=== PATIENT | male | born 1960 | race Caucasian/White ===

== ENCOUNTER 2020-01-03 06:18 | Emergency (ER) | payer OTHER ==
[~2020-01-03] VITALS: Ht 175.3 cm; Wt 94.5 kg
[2020-01-03 06:20] VITALS: BP 146/92
--- NOTE | 2020-01-03 06:37 | PHYS DOC ---
Adult General Chief Complaint Chief Complaint: FINGER INJURY [facility] Patient is a 59 year old male who presents with complaint of right fifth finger injury. Patient was at work and he got his finger wedged between tote and a piece of machinery. 7 3:00 in the morning. Since that time he has noticed a sli ght medial deviation in the finger with some numbness. There is minimal pain at the metacarpal region. No treatment prior to arrival. 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 He continued to work until just prior to arrival Review of Systems Review of Systems All other ROS is negative unless otherwise stated in HPI Allergies Allergies Allergies Coded Allergies Type Severity Reaction Last Updated Verified Penicillins Allergy Severe rash 01/03/20 Yes cephalexin Allergy Severe rash, lips swell up 01/03/20 Yes ciprofloxacin Allergy Severe rash, lips swell up 01/03/20 Yes tolmetin Allergy Intermediate rash 01/03/20 Yes Physical Exam Physical Exam See above Constitutional: Well developed, well nourished, no acute distress, non-toxic appearance. [] HENT: Normocephalic, atraumatic, bilateral external ears normal, oropharynx moist, no oral exudates, nose normal. [] Eyes: PERRLA, EOMI, conjunctiva normal, no discharge. [] Neck: Normal range of motion, no tenderness, supple, no stridor. [] Cardiovascular:Heart rate regular rhythm, no murmur [] Lungs & Thorax: Bilateral breath sounds clear to auscultation [] Abdomen: Bowel sounds normal, soft, no tenderness, no masses, no pulsatile masses. [] Skin: Warm, dry, no erythema, no rash. [] Back: No tenderness, no CVA tenderness. [] Extremities: Normal except for the patient's little finger which has mild to moderate medial deviation that appears to be more prominent at the proximal interphalangeal joint. She has normal range of motion otherwise and minimal tenderness to the metacarpal region. Neurologic: Alert and oriented X 3, normal motor function, some decreased sensation/numbness to the right little finger, no focal deficits noted. [] Psychologic: Affect normal, judgement normal, mood normal. [] Current Patient Data Vital Signs Vital Signs Date Time Temp Pulse Resp B/P (MAP) Pulse Ox O2 Delivery O2 Flow Rate FiO2 01/03/20 06:20 98.2 91 16 146/92 (110) 99 Room Air 98.2 EKG EKG [] Radiology/Procedures Radiology/Procedures PROCEDURE: FINGER(S) RIGHT Three-view of the right small finger dated 01/03/2020. No comparison available. CLINICAL INDICATION: Pain after injury. Findings Compare 3 views of the right small finger show normal bony alignment. No displaced fracture. Diffuse soft tissue swelling. No acute osseous or articular abnormality. No bony avulsion. IMPRESSION: Soft tissue swelling with no evidence of underlying acute bony abnormality.[] Course & Med Decision Making Course & Med Decision Making Pertinent Labs and Imaging studies reviewed. (See chart for details) 0716: This patient's x-ray is negative for fracture or dislocation. Upon further examination he does have some swelling to the proximal interphalangeal joint mostly on the lateral aspect posteriorly. This is the joint that is limited to flexion the most. I suspect possible tendon injury. We will discuss further treatment options with orthopedics. 0737: I spoke with Dr. Dumont who recommends putting the patient in the safe position. We will give him information to a hand specialist and the patient is to follow-up with his Workmen's Compensation physician on Sunday and may be referred to the specialist provided today or a specialist of their choosing. We'll also start him on anti-inflammatory medication. Dragon Disclaimer Dragon Disclaimer This electronic medical record was generated, in whole or in part, using a voice recognition dictation system. Departure Departure Impression: Primary Impression: Injury of right little finger Disposition: HOME, SELF-CARE Condition: STABLE Patient Instructions: Cast or Splint Care Additional Instructions: You should follow-up with your Workmen's Comp physician on Sunday. You can consider referral to Dr. Dayami Fierro, a hand specialist. Scripts Diclofenac Sodium (DICLOFENAC SODIUM) 75 Mg Tablet. 1 TAB PO BID for 10 Days, #20 TAB 1 Refill Prov: ILANA MARTIN DO 01/03/20 ILANA MARTIN DO Jan 03, 2020 06:37
--- NOTE | 2020-01-03 06:57 | RAD ---
Three-view of the right small finger dated 01/03/2020. No comparison available. CLINICAL INDICATION: Pain after injury. Findings Compare 3 views of the right small finger show normal bony alignment. No displaced fracture. Diffuse soft tissue swelling. No acute osseous or articular abnormality. No bony avulsion. IMPRESSION: Soft tissue swelling with no evidence of underlying acute bony abnormality. Electronically signed by: Case Payan MD (01/03/2020 6:54 AM) [id number]
[2020-01-03] MEDS ORDERED: DICL75TA PO (07:42)
== END 2020-01-03 08:15 | disposition home or self-care (01) ==
LOC: ER 06:18
DX: S69.91XA Unspecified injury of right wrist, hand and finger(s), initial encounter (principal); Z88.0 Allergy status to penicillin; Z88.1 Allergy status to other antibiotic agents; W31.89XA Contact with other specified machinery, initial encounter; Y93.89 Activity, other specified; Y92.69 Other specified industrial and construction area as the place of occurrence of the external cause; Y99.0 Civilian activity done for income or pay
CPT/HCPCS: 29130; 73140; 99283

== ENCOUNTER 2021-07-23 21:10 | Observation (INO) | payer OTHER ==
[~2021-07-23] VITALS: Ht 175.3 cm; Wt 101.8 kg
[~2021-07-23 21:10] MED LIST: DICL75TA PO
--- NOTE | 2021-07-23 21:26 | PHYS DOC ---
Past Medical History Past Medical History: High Cholesterol, Hypertension Past Surgical History: Other Additional Past Surgical Histo: multiple knee and back surgeries Smoking Status: Never Smoker Alcohol Use: Sober General Adult HPI: HPI: Patient is a 60 year old male past medical history hypertension hyperlipidemia and chronic chest pain presents with a chief complaint of chest pain. Patient states he has chest pain daily usually lasting for a few minutes then it resolves with rest. Patient describes his typical chest pain in the left chest associated with some lightheadedness and some dizziness that usually last 10 to 15 minutes then resolved. Around 20 0 0 hours patient had a typical episode of chest pain but the pain was more intense. Associated symptoms included dizziness diaphoresis. Patient states he became concerned when the pain did not resolve. Patient states he had to take a knee. He describes the discomfort as a hard ache stabbing sensation that radiated to his back shoulder and left upper jaw. Patient states tonight symptoms reminded him of his previous heart attack. Patient rated the pain a 5 out of 10. EMS treated patient with aspirin and nitroglycerin. On arrival patient states his pain is currently a 2 out of 10. EKG performed showed no acute ischemic changes--with a sinus bradycardia. Review of Systems: Review of Systems: Review of systems: Constitutional symptoms- No fever, no chills. Eyes- No Discharge, No Visual Loss Respiratory symptoms- No shortness of breath, No wheezing, No Dyspnea on Exertion Cardiovascular Systems; Positive chest pain, No Palpitations, No syncope Gastrointestinal symptoms: NO abdominal pain, no nausea, no vomiting or diarrhea. Genitourinary symptoms: No dysuria. Musculoskeletal symptoms: No back pain No extremity pain. NEUROLOGICAL Symptoms: No headache, no generalized weakness; No focal Weakness positive dizziness Skin: No rash. Positive diaphoresis Heart Score: C/O Chest Pain: Yes HEART Score for Chest Pain: HEART Score for Chest Pain Response (Comments) Value History Moderately Suspicious 1 ECG Nonspecific Repolarizatio 1 Age >45 - < 65 1 Risk Factors 1 or 2 Risk Factors 1 Troponin < Normal Limit 0 Total 4 Risk Factors: Risk Factors: DM, Current or recent (<one month) smoker, HTN, HLP, family history of CAD, obesity. Risk Scores: Score 0 - 3: 2.5% MACE over next 6 weeks - Discharge Home Score 4 - 6: 20.3% MACE over next 6 weeks - Admit for Clinical Observation Score 7 - 10: 72.7% MACE over next 6 weeks - Early Invasive Strategies Allergies: Allergies: Allergies Coded Allergies Type Severity Reaction Last Updated Verified Penicillins Allergy Severe rash 01/03/20 Yes cephalexin Allergy Severe rash, lips swell up 01/03/20 Yes ciprofloxacin Allergy Severe rash, lips swell up 01/03/20 Yes tolmetin Allergy Intermediate rash 01/03/20 Yes Physical Exam: PE: Constitutional: Well developed, well nourished, no acute distress, non-toxic appearance. [] HENT: Normocephalic, atraumatic, bilateral external ears normal, oropharynx moist, no oral exudates, nose normal. [] Eyes: PERRLA, EOMI, conjunctiva normal, no discharge. [] Neck: Normal range of motion, no tenderness, supple, no stridor. [] Cardiovascular:Heart rate regular rhythm, no murmur [] Lungs & Thorax: Bilateral breath sounds clear to auscultation [] Abdomen: Bowel sounds normal, soft, no tenderness, no masses, no pulsatile masses. [] Skin: Warm, dry, no erythema, no rash. [] Back: No tenderness, no CVA tenderness. [] Extremities: No tenderness, no cyanosis, no clubbing, ROM intact, no edema. [] Neurologic: Alert and oriented X 3, normal motor function, normal sensory function, no focal deficits noted. [] Psychologic: Affect normal, judgement normal, mood normal. [] EKG: EKG: [] Performed at 2117 Rate [address] elevation No ST depression No acute CA Radiology/Procedures: Radiology/Procedures: [] Impression: Wet read chest x-ray no focal infiltrate no bony abnormality no acute process Course & Med Decision Making: Course & Med Decision Making Pertinent Labs and Imaging studies reviewed. (See chart for details) [] Patient was evaluated for chief complaint. Work-up consisted of laboratory analysis and radiologic imaging. Results reviewed and discussed with patient. EMS treated patient prehospital with aspirin and nitroglycerin. In the emergency department patient received morphine for his pain with improvement. Patient was admitted to the hospitalist with a cardiology consult. Josefina Disclaimer: Josefina Disclaimer: This electronic medical record was generated, in whole or in part, using a voice recognition dictation system. Departure Departure Impression: Primary Impression: Chest pain Disposition: ADMITTED INPATIENT Condition: STABLE Referrals: UNKNOWN PCP NAME (PCP) MECHELLE SAENZ DO Jul 23, 2021 21:26
[2021-07-23 21:37] LABS: BASO # 0.1 x10^3/uL (0.0-0.2); BASO % 1 % (0-3); EOS # 0.2 x10^3/uL (0.0-0.7); EOS % 4 % (0-3); HEMATOCRIT 40.5 % (39.0-53.0); HEMOGLOBIN 14.3 g/dL (13.0-17.5); LYMPH # 1.5 x10^3/uL (1.0-4.8); LYMPH % 22 % (24-48); MEAN CORPUSCULAR HEMOGLOBIN 30 pg (25-35); MEAN CORPUSCULAR HGB CONC 36 g/dL (31-37); MEAN CORPUSCULAR VOLUME 83 fL (79-100); MONO # 0.7 x10^3/uL (0.0-1.1); MONO % 10 % (0-9); NEUT # 4.2 x10^3/uL (1.8-7.7); NEUT % 64 % (31-73); PLATELET COUNT 250 x10^3/uL (140-400); RED BLOOD COUNT 4.87 x10^6/uL (4.30-5.70); RED CELL DISTRIBUTION WIDTH 13.1 % (11.5-14.5); WHITE BLOOD COUNT 6.7 x10^3/uL (4.0-11.0)
[2021-07-23 21:54] LABS: ALBUMIN 3.7 g/dL (3.4-5.0); ALBUMIN/GLOBULIN RATIO 1.2 (1.0-1.7); CALCIUM 9.4 mg/dL (8.5-10.1); CREATININE 1.1 mg/dL (0.7-1.3); GFR 68.8; TOTAL BILIRUBIN 0.6 mg/dL (0.2-1.0); TOTAL PROTEIN 6.8 g/dL (6.4-8.2)
[2021-07-23 21:57] LABS: POTASSIUM 2.9 mmol/L (3.5-5.1)
[2021-07-23] MEDS ORDERED: MORPHINE SULFATE 4 MG/ML INJ. IVP ONE (22:15)
[2021-07-23] MEDS ORDERED: MORPHINE SULFATE 2 MG/ML INJ. IVP PRN (23:30)
[2021-07-23] MEDS ORDERED: ONDANSETRON PF 4 MG/2 ML VIAL. IVP PRN (23:30)
[2021-07-23] MEDS ORDERED: NITROGLYCERIN SUBLINGUAL 0.4 MG BOTTLE OF 25. SL PRN (23:30)
[2021-07-24 00:10] VITALS: BP 139/84
[2021-07-24] MEDS ORDERED: POTASSIUM CHLORIDE 20 MEQ TABLET.ER. PO ONE (00:15)
--- NOTE | 2021-07-24 00:29 | RAD ---
Study: XR CHEST 1V Indication: Chest pain. Comparison: None. Findings: The cardiomediastinal silhouette and marcos are within normal limits. No localized airspace opacity, pl eural effusion or pneumothorax. Status post distal clavicular resection on the right. Impression: No acute radiographic abnormality of the chest. Electronically signed by: ISABELLA GUERIN MD (07/24/2021 12:27 AM) [facility] [place] [place]
[2021-07-24 03:00] VITALS: BP 162/81
[2021-07-24] MEDS ORDERED: ASPI81TA59 PO (03:37)
[2021-07-24] MEDS ORDERED: CRESTOR5 MG PO (03:37)
[2021-07-24] MEDS ORDERED: FURO40TA4 PO (03:37)
[2021-07-24] MEDS ORDERED: LABE200T4 PO (03:37)
[2021-07-24] MEDS ORDERED: POTA-116 PO (03:37)
[2021-07-24] MEDS ORDERED: CHLO25TA10 PO (03:37)
--- NOTE | 2021-07-24 04:36 | EKG ---
[facility] [address] [place] [address] Test Date: 2021-07-23 Test Time: 21:17:33 Pat Name: IOANA WORTHY Department: Room: [facility] Gender: M [employer]: : 1960 Requested By: MECHELLE SAENZ Order Number: [id number] Reading MD: Roberth Gregory MD Measurements Intervals [place]ron Rate: 54 P: -28 UT: 152 QRS: 11 QRSD: 84 T: 66 QT: 450 QTc: 429 Interpretive Statements SR Electronically Signed On 07-24-2021 11:27:24 CDT by Roberth Gregory MD
[2021-07-24 07:00] VITALS: BP 119/71
[2021-07-24 11:00] VITALS: BP 97/51
--- NOTE | 2021-07-24 11:54 | PDOC1 ---
History and Physical Date of Admission Date of Admission DATE: 07/24/21 TIME: 11:53 Identification/Chief Complaint Chief Complaint chest pain at rest History of Present Illness History of Present Illness 60 year old male past medical history hypertension hyperlipidemia and chronic chest pain presented to ER last night with a chief complaint of chest pain. he has chest pain daily usually lasting for a few minutes then it resolves with rest. Patient describes his typical chest pain / patient had a typical episode of chest pain but the pain was more intense. some dizziness diaphoresis. describes the discomfort as a hard ache stabbing sensation that radiated to his back shoulder and left upper jaw. last night , symptoms reminded him of his previous heart attack. Patient rated the pain a 5 out of 10. 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, had a cath this year in [facility] that was noncritical for stenosis Past Medical History Past Medical History Past Medical History Past Medical History Past Medical History: High Cholesterol, Hypertension Past Surgical History: Other Additional Past Surgical Histo: multiple knee and back surgeries Smoking Status: Never Smoker Alcohol Use: Sober fhx obesity Hepatobiliary: No pertinent hx Psych: Anxiety Musculoskeletal: Osteoarthritis Infectious disease: No pertinent hx ENT: No pertinent hx Renal/: No pertinent hx Dermatology: No pertinent hx Family History Family History: Heart Disease, High Cholestrol Social History Smoke: No ALCOHOL: none Drugs: None Current Problem List Problem List Problems Medical Problems: (1) Chest pain Status: Acute Current Medications Current Medications Current Medications Morphine Sulfate (Morphine Sulfate) 4 mg 1X ONCE IVP Last administered on 07/23/21at 22:38; Start 07/23/21 at 22:15; Stop 07/23/21 at 22:16; Status DC Ondansetron HCl (Zofran) 4 mg PRN Q8HRS PRN IVP NAUSEA/VOMITING; Start 07/23/21 at 23:30; Stop 07/24/21 at 23:29 Morphine Sulfate (Morphine Sulfate) 2 mg PRN Q2HR PRN IVP PAIN Last administered on 07/24/21at 02:08; Start 07/23/21 at 23:30; Stop 07/24/21 at 23:29 Nitroglycerin (Nitrostat) 0.4 mg PRN Q5MIN PRN SL CHEST PAIN; Start 07/23/21 at 23:30; Stop 07/24/21 at 23:29 Potassium Chloride (Klor-Con) 40 meq 1X ONCE PO Last administered on 07/24/21at 02:07; Start 07/24/21 at 00:15; Stop 07/24/21 at 00:17; Status DC Active Scripts Active Diclofenac Sodium 75 Mg Tablet.dr 1 Tab PO BID 10 Days Reported Children's Aspirin (Aspirin) 81 Mg Tab.chew 1 Tab PO DAILY 30 Days Chlorthalidone (Chlorthalidone) 25 Mg Tablet 25 Mg PO DAILY Crestor (Rosuvastatin Calcium) 5 Mg Tablet 2 Tab PO DAILY Klor-Con M10 (Potassium Chloride) 10 Meq Tab.er.prt 10 Meq PO DAILY Furosemide 40 Mg Tablet 1 Tab PO DAILY Labetalol Hcl 200 Mg Tablet 1 Tab PO BID Allergies Allergies: Coded Allergies: Penicillins (Verified Allergy, Severe, rash, 01/03/20) cephalexin (Verified Allergy, Severe, rash, lips swell up, 01/03/20) ciprofloxacin (Verified Allergy, Severe, rash, lips swell up, 01/03/20) tolmetin (Verified Allergy, Intermediate, rash, 01/03/20) ROS Review of System 14 PT ROS OTHERWISE NEG General: No: Chills, Night Sweats, Fatigue, Malaise, Appetite, Other PSYCHOLOGICAL ROS: No: Anxiety, Behavioral Disorder, Concentration difficultie, Decreased libido, Depression, Disorientation, Hallucinations, Hostility, Irritablity, Memory difficulties, Mood Swings, Obsessive thoughts, Physical abuse, Sexual abuse, Sleep disturbances, Suicidal ideation, Other Eyes: No Blurry vision, No Decreased vision, No Double vision, No Dry eyes, No Excessive tearing, No Eye Pain, No Itchy Eyes, No Loss of vision, No Photophobia, No Scotomata, No Uses contacts, No Uses glasses, No Other HEENT: No: Heacaches, Visual Changes, Hearing change, Nasal congestion, Nasal discharge, Oral lesions, Sinus pain, Sore Throat, Epistaxis, Sneezing, Snoring, Tinnitus, Vertigo, Vocal changes, Other ALLERGY AND IMMUNOLOGY: YES: Hives; No: Insect Bite Sensitivity, Itchy/Watery Eyes, Nasal Congestion, Post Nasal Drip, Seasonal Allergies, Other Hematological and Lymphatic: No: Bleeding Problems, Blood Clots, Blood Transfusions, Brusing, Night Sweats, Pallor, Swollen Lymph Nodes, Other ENDOCRINE: No: Breast Changes, Galactorrhea, Hair Pattern Changes, Hot Flashes, Malaise/lethargy, Mood Swings, Palpitations, Polydipsia/polyuria, Skin Changes, Temperature Intolerance, Unexpected Weight Changes, Other Breast: No New/Changing Breast Lumps, No Nipple changes, No Nipple discharge, No Other Respiratory: No: Cough, Hemoptysis, Orthopnea, Pleuritic Pain, Shortness of breath, SOB with excertion, Sputum Changes, Stridor, Tachypnea, Wheezing, Other Cardiovascular: yes Chest Pain; No Palpitations, No Orthopnea, No Paroxysmal Noc. Dyspnea, No Edema, No Lt Headedness, No Other Gastrointestinal: No Nausea, No Vomiting, No Abdominal Pain, No Diarrhea, No Constipation, No Melena, No Hematochezia, No Other Genitourinary: No Dysuria, No Frequency, No Incontinence, No Hematuria, No Retention, No Discharge, No Urgency, No Pain, No Flank Pain, No Other, No , No , No , No , No , No , No Musculoskeletal: No Gait Disturbance, No Joint Pain, No Joint Stiffness, No Joint Swelling, No Muscle Pain, No Muscular Weakness, No Pain In:, No Swelling In:, No Other Neurological: No Behavorial Changes, No Bowel/Bladder ControlChng, No Confusion, No Dizziness, No Gait Disturbance, No Headaches, No Impaired Coord/balance, No Memory Loss, No Numbness/Tingling, No Seizures, No Speech Problems, No Tremors, No Visual Changes, No Weakness, No Other Skin: No Dry Skin, No Eczema, No Hair Changes, No Lumps, No Mole Changes, No Mottling, No Nail Changes, No Pruritus, No Rash, No Skin Lesion Changes, No Other, No Acne Physical Exam Physical Exam Constitutional: Well developed, well nourished, no acute distress, [] HENT: Normocephalic, atraumatic, bilateral external ears normal, oropharynx moist, no oral exudates, nose normal. [] Eyes: PERRLA, EOMI, conjunctiva normal, no discharge. [] Neck: Normal range of motion, no tenderness, supple, no stridor. [] Cardiovascular:Heart rate regular rhythm, no murmur [] Lungs & Thorax: Bilateral breath sounds clear to auscultation [] Abdomen: Bowel sounds normal, soft, no tenderness, no masses, no pulsatile masses. [] Skin: Warm, dry, no erythema, no rash. [] Back: No tenderness, no CVA tenderness. [] Extremities: No tenderness, no cyanosis, no clubbing, ROM intact, no edema. [] Neurologic: Alert and oriented X 3, normal motor function, normal sensory function, no focal deficits noted. [] Psychologic: Affect normal, judgment normal, mood normal. [] General: Alert, Oriented X3, Cooperative, No acute distress HEENT: Atraumatic Lungs: Clear to auscultation Heart: S1S2, RRR, no thrills, no rubs Breasts: Not examined Abdomen: Normal bowel sounds, Soft, No tenderness, Other (obese) Rectal Exam: not examined Extremities: No cyanosis, No edema, No tenderness/swelling Skin: No significant lesion Neuro: Normal speech, Sensation intact, Cranial nerves 3-12 NL Psych/Mental Status: Mental status NL, Mood NL Vitals Vitals Vital Signs Date Time Temp Pulse Resp B/P (MAP) Pulse Ox O2 Delivery O2 Flow Rate FiO2 07/24/21 11:00 97.6 53 18 97/51 (66) 96 Room Air 97.6 07/24/21 07:00 2.0 Labs Labs Laboratory Tests Test 07/23/21 21:23 07/24/21 00:10 07/24/21 08:05 White Blood Count 6.7 x10^3/uL (4.0-11.0) Red Blood Count 4.87 x10^6/uL (4.30-5.70) Hemoglobin 14.3 g/dL (13.0-17.5) Hematocrit 40.5 % (39.0-53.0) Mean Corpuscular Volume 83 fL (79-100) Mean Corpuscular Hemoglobin 30 pg (25-35) Mean Corpuscular Hemoglobin Concent 36 g/dL (31-37) Red Cell Distribution Width 13.1 % (11.5-14.5) Platelet Count 250 x10^3/uL (140-400) Neutrophils (%) (Auto) 64 % (31-73) Lymphocytes (%) (Auto) 22 % (24-48) Monocytes (%) (Auto) 10 % (0-9) Eosinophils (%) (Auto) 4 % (0-3) Basophils (%) (Auto) 1 % (0-3) Neutrophils # (Auto) 4.2 x10^3/uL (1.8-7.7) Lymphocytes # (Auto) 1.5 x10^3/uL (1.0-4.8) Monocytes # (Auto) 0.7 x10^3/uL (0.0-1.1) Eosinophils # (Auto) 0.2 x10^3/uL (0.0-0.7) Basophils # (Auto) 0.1 x10^3/uL (0.0-0.2) Sodium Level 139 mmol/L (136-145) Potassium Level 2.9 mmol/L (3.5-5.1) Chloride Level 103 mmol/L (98-107) Carbon Dioxide Level 28 mmol/L (21-32) Anion Gap 8 (6-14) Blood Urea Nitrogen 25 mg/dL (8-26) Creatinine 1.1 mg/dL (0.7-1.3) Estimated GFR (Cockcroft-Gault) 68.8 BUN/Creatinine Ratio 23 (6-20) Glucose Level 96 mg/dL (70-99) Calcium Level 9.4 mg/dL (8.5-10.1) Total Bilirubin 0.6 mg/dL (0.2-1.0) Aspartate Amino Transf (AST/SGOT) 28 U/L (15-37) Alanine Aminotransferase (ALT/SGPT) 54 U/L (16-63) Alkaline Phosphatase 53 U/L (46-116) Troponin I Quantitative < 0.017 ng/mL (0.000-0.055) < 0.017 ng/mL (0.000-0.055) < 0.017 ng/mL (0.000-0.055) Total Protein 6.8 g/dL (6.4-8.2) Albumin 3.7 g/dL (3.4-5.0) Albumin/Globulin Ratio 1.2 (1.0-1.7) Laboratory Tests Test 07/23/21 21:23 07/24/21 00:10 07/24/21 08:05 White Blood Count 6.7 x10^3/uL (4.0-11.0) Red Blood Count 4.87 x10^6/uL (4.30-5.70) Hemoglobin 14.3 g/dL (13.0-17.5) Hematocrit 40.5 % (39.0-53.0) Mean Corpuscular Volume 83 fL (79-100) Mean Corpuscular Hemoglobin 30 pg (25-35) Mean Corpuscular Hemoglobin Concent 36 g/dL (31-37) Red Cell Distribution Width 13.1 % (11.5-14.5) Platelet Count 250 x10^3/uL (140-400) Neutrophils (%) (Auto) 64 % (31-73) Lymphocytes (%) (Auto) 22 % (24-48) Monocytes (%) (Auto) 10 % (0-9) Eosinophils (%) (Auto) 4 % (0-3) Basophils (%) (Auto) 1 % (0-3) Neutrophils # (Auto) 4.2 x10^3/uL (1.8-7.7) Lymphocytes # (Auto) 1.5 x10^3/uL (1.0-4.8) Monocytes # (Auto) 0.7 x10^3/uL (0.0-1.1) Eosinophils # (Auto) 0.2 x10^3/uL (0.0-0.7) Basophils # (Auto) 0.1 x10^3/uL (0.0-0.2) Sodium Level 139 mmol/L (136-145) Potassium Level 2.9 mmol/L (3.5-5.1) Chloride Level 103 mmol/L (98-107) Carbon Dioxide Level 28 mmol/L (21-32) Anion Gap 8 (6-14) Blood Urea Nitrogen 25 mg/dL (8-26) Creatinine 1.1 mg/dL (0.7-1.3) Estimated GFR (Cockcroft-Gault) 68.8 BUN/Creatinine Ratio 23 (6-20) Glucose Level 96 mg/dL (70-99) Calcium Level 9.4 mg/dL (8.5-10.1) Total Bilirubin 0.6 mg/dL (0.2-1.0) Aspartate Amino Transf (AST/SGOT) 28 U/L (15-37) Alanine Aminotransferase (ALT/SGPT) 54 U/L (16-63) Alkaline Phosphatase 53 U/L (46-116) Troponin I Quantitative < 0.017 ng/mL (0.000-0.055) < 0.017 ng/mL (0.000-0.055) < 0.017 ng/mL (0.000-0.055) Total Protein 6.8 g/dL (6.4-8.2) Albumin 3.7 g/dL (3.4-5.0) Albumin/Globulin Ratio 1.2 (1.0-1.7) Images Images PATIENT: IOANA WORTHY ACCOUNT: [id number] : 1960 LOCATION: [facility] AGE: 60 SEX: M EXAM STATUS: ADM IN ORD. PHYSICIAN: MECHELLE SAENZ DO REASON: chest pain PROCEDURE: CHEST AP ONLY Study: XR CHEST 1V Indication: Chest pain. Comparison: None. Findings: The cardiomediastinal silhouette and marcos are within normal limits. No localized airspace opacity, pleural effusion or pneumothorax. Status post distal clavicular resection on the right. Impression: No acute radiographic abnormality of the chest. Electronically signed by: ISABELLA GUERIN MD (07/24/2021 12:27 AM) [facility] DICTATED and SIGNED BY: ISABELLA GUERIN MD DATE: 07/24/21 [id number] VTE Prophylaxis Ordered VTE Prophylaxis Devices: No VTE Pharmacological Prophylaxi: Yes Assessment/Plan Assessment/Plan Impression: Chest pain Morbid obesity hx coronary artery spasm Hypertension Hyperlipidemia ADMITTED Cardiology consult ok with d[facility]c today[facility] Justifications for Admission Other Justification JAYJAY HERNANDEZ MD Jul 24, 2021 11:54
--- NOTE | 2021-07-24 13:10 | PDOC2 ---
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 He reports an extensive w/u here at [facility]. The patient is well educated about his disease state and reports that he was told about a mid myocardial bridge and was actually seen by a surgeon and they felt that he would be best treated with medical therapy. He normally has chest pain every day and is able to control it based on how active he is. He denies any current chest pain. Pain started yesterday at work at [employer]. It subsided after EMS gave him NTG. He has had normal EKG and trops. No syncope. PMHX: 1. Myocardial bridging and vasospasm 2. HTN 3. Dyslipidemia SOCHX: No alcohol, tob or illicit drug use. He works at [employer] now. FAMHX: NC CURRENT MEDS: Home meds reviewed - He is on metoprolol, amlodipine. ALLERGIES: Allergies Coded Allergies Type Severity Reaction Last Updated Verified Penicillins Allergy Severe rash 01/03/20 Yes cephalexin Allergy Severe rash, lips swell up 01/03/20 Yes ciprofloxacin Allergy Severe rash, lips swell up 01/03/20 Yes tolmetin Allergy Intermediate rash 01/03/20 Yes ROS: Negative for 08/18 systems reviewed unless noted above in HPI PHYSICAL EXAM: Vital Signs/I&O: Vital Signs Date Time Temp Pulse Resp B/P (MAP) Pulse Ox O2 Delivery O2 Flow Rate FiO2 07/24/21 11:00 97.6 53 18 97/51 (66) 96 Room Air 97.6 07/24/21 07:00 2.0 I & O 07/23/21 07/23/21 07/24/21 15:00 23:00 07:00 Output Total 400 ml Balance -400 ml Physical Exam: GEN.: No apparent distress. Alert and oriented. HEENT: Head is normocephalic, atraumatic NECK: Supple. LUNGS: Clear to auscultation. HEART: RRR, S1, S2 present. Peripheral pulses intact ABDOMEN: Soft, nontender. Positive bowel sounds. EXTREMITIES: Without any cyanosis. NEUROLOGIC: Normal speech, normal tone PSYCHIATRIC: Normal affect, normal mood. SKIN: No ulcerations DIAGNOSTIC TESTING: EKG and trops negative. Lab Laboratory Tests Test 07/23/21 21:23 White Blood Count 6.7 x10^3/uL (4.0-11.0) Red Blood Count 4.87 x10^6/uL (4.30-5.70) Hemoglobin 14.3 g/dL (13.0-17.5) Hematocrit 40.5 % (39.0-53.0) Mean Corpuscular Volume 83 fL (79-100) Mean Corpuscular Hemoglobin 30 pg (25-35) Mean Corpuscular Hemoglobin Concent 36 g/dL (31-37) Red Cell Distribution Width 13.1 % (11.5-14.5) Platelet Count 250 x10^3/uL (140-400) Neutrophils (%) (Auto) 64 % (31-73) Lymphocytes (%) (Auto) 22 % (24-48) L Monocytes (%) (Auto) 10 % (0-9) H Eosinophils (%) (Auto) 4 % (0-3) H Basophils (%) (Auto) 1 % (0-3) Neutrophils # (Auto) 4.2 x10^3/uL (1.8-7.7) Lymphocytes # (Auto) 1.5 x10^3/uL (1.0-4.8) Monocytes # (Auto) 0.7 x10^3/uL (0.0-1.1) Eosinophils # (Auto) 0.2 x10^3/uL (0.0-0.7) Basophils # (Auto) 0.1 x10^3/uL (0.0-0.2) Sodium Level 139 mmol/L (136-145) Potassium Level 2.9 mmol/L (3.5-5.1) *L Chloride Level 103 mmol/L (98-107) Carbon Dioxide Level 28 mmol/L (21-32) Anion Gap 8 (6-14) Blood Urea Nitrogen 25 mg/dL (8-26) Creatinine 1.1 mg/dL (0.7-1.3) Estimated GFR (Cockcroft-Gault) 68.8 BUN/Creatinine Ratio 23 (6-20) H Glucose Level 96 mg/dL (70-99) Calcium Level 9.4 mg/dL (8.5-10.1) Total Bilirubin 0.6 mg/dL (0.2-1.0) Aspartate Amino Transf (AST/SGOT) 28 U/L (15-37) Alkaline Phosphatase 53 U/L (46-116) Total Protein 6.8 g/dL (6.4-8.2) Albumin 3.7 g/dL (3.4-5.0) Albumin/Globulin Ratio 1.2 (1.0-1.7) Laboratory Tests 07/23/21 21:23 ASSESSMENT: 1. Stable angina. 2. HTN 3. Vasospastic angina PLAN: 1. No further CV testing needed. Pt. had a cath in Dec and seen by electronics technician apprentice and surgeon at [place] recently. -Supportive care. -Home on NTG prn. -f/u with new electronics technician apprentice at [facility] KAROLINA GAGNON MD Jul 24, 2021 13:10
[2021-07-24 15:00] VITALS: BP 147/88
--- NOTE | 2021-07-24 15:49 | PDOC3 ---
Discharge Summary Date of Admission: Jul 23, 2021 Date of Discharge: Jul 24, 2021 Follow-Up: 3-5 days Admitting Diagnosis comment: VTE Prophylaxis Ordered VTE Prophylaxis Devices: No VTE Pharmacological Prophylaxi: Yes DISCHARGE DX CONSULTS CARDIOLOGY COMPLICATIONS NONE D/C CONDITION GOOD D/C MEDS SEE [facility] Assessment/Plan Chest pain ATYPICAL, STABLE Morbid obesity hx coronary artery spasm Hypertension Hyperlipidemia ADMITTED Cardiology consult ok with d/c today, see cardiology in [facility] soon home meds d/w RN Justifications for Admission Justifications for Admission Other Justification Identification/Chief Complaint Chief Complaint chest pain at rest History of Present Illness History of Present Illness 60 year old male past medical history hypertension hyperlipidemia and chronic chest pain presented to ER last night with a chief complaint of chest pain. he has chest pain daily usually lasting for a few minutes then it resolves with rest. Patient describes his typical chest pain / patient had a typical episode of chest pain but the pain was more intense. some dizziness diaphoresis. describes the discomfort as a hard ache stabbing sensation that radiated to his back shoulder and left upper jaw. last night , symptoms reminded him of his previous heart attack. Patient rated the pain a 5 out of 10. He was working at [employer] last night when the pain became worse EMS treated patient with aspirin and nitroglycerin reportedly has hx vasospastic angina, had a cath this year in [facility] that was noncritical for stenosis Past Medical History Past Medical History Past Medical History Past Medical History Past Medical History: High Cholesterol, Hypertension Past Surgical History: Other Additional Past Surgical Histo: multiple knee and back surgeries Smoking Status: Never Smoker Alcohol Use: Sober fhx obesity Hepatobiliary: No pertinent hx Psych: Anxiety Musculoskeletal: Osteoarthritis Infectious disease: No pertinent hx ENT: No pertinent hx Renal/: No pertinent hx Dermatology: No pertinent hx Family History Family History: Heart Disease, High Cholestrol Social History Smoke: No ALCOHOL: none Drugs: None Current Problem List Problem List Problems Medical Problems: (1) Chest pain Status: Acute Current Medications Current Medications Current Medications Morphine Sulfate (Morphine Sulfate) 4 mg 1X ONCE IVP Last administered on 07/23/21at 22:38; Start 07/23/21 at 22:15; Stop 07/23/21 at 22:16; Status DC Ondansetron HCl (Zofran) 4 mg PRN Q8HRS PRN IVP NAUSEA/VOMITING; Start 07/23/21 at 23:30; Stop 07/24/21 at 23:29 Morphine Sulfate (Morphine Sulfate) 2 mg PRN Q2HR PRN IVP PAIN Last administered on 07/24/21at 02:08; Start 07/23/21 at 23:30; Stop 07/24/21 at 23:29 Nitroglycerin (Nitrostat) 0.4 mg PRN Q5MIN PRN SL CHEST PAIN; Start 07/23/21 at 23:30; Stop 07/24/21 at 23:29 Potassium Chloride (Klor-Con) 40 meq 1X ONCE PO Last administered on 07/24/21at 02:07; Start 07/24/21 at 00:15; Stop 07/24/21 at 00:17; Status DC Active Scripts Active Diclofenac Sodium 75 Mg Tablet.dr 1 Tab PO BID 10 Days Reported Children's Aspirin (Aspirin) 81 Mg Tab.chew 1 Tab PO DAILY 30 Days Chlorthalidone (Chlorthalidone) 25 Mg Tablet 25 Mg PO DAILY Crestor (Rosuvastatin Calcium) 5 Mg Tablet 2 Tab PO DAILY Klor-Con M10 (Potassium Chloride) 10 Meq Tab.er.prt 10 Meq PO DAILY Furosemide 40 Mg Tablet 1 Tab PO DAILY Labetalol Hcl 200 Mg Tablet 1 Tab PO BID Allergies Allergies: Coded Allergies: Penicillins (Verified Allergy, Severe, rash, 01/03/20) cephalexin (Verified Allergy, Severe, rash, lips swell up, 01/03/20) ciprofloxacin (Verified Allergy, Severe, rash, lips swell up, 01/03/20) tolmetin (Verified Allergy, Intermediate, rash, 01/03/20) ROS Review of System 14 PT ROS OTHERWISE NEG General: No: Chills, Night Sweats, Fatigue, Malaise, Appetite, Other PSYCHOLOGICAL ROS: No: Anxiety, Behavioral Disorder, Concentration difficultie, Decreased libido, Depression, Disorientation, Hallucinations, Hostility, Irritablity, Memory difficulties, Mood Swings, Obsessive thoughts, Physical abuse, Sexual abuse, Sleep disturbances, Suicidal ideation, Other Eyes: No Blurry vision, No Decreased vision, No Double vision, No Dry eyes, No Excessive tearing, No Eye Pain, No Itchy Eyes, No Loss of vision, No P hotophobia, No Scotomata, No Uses contacts, No Uses glasses, No Other HEENT: No: Heacaches, Visual Changes, Hearing change, Nasal congestion, Nasal discharge, Oral lesions, Sinus pain, Sore Throat, Epistaxis, Sneezing, Snoring, Tinnitus, Vertigo, Vocal changes, Other ALLERGY AND IMMUNOLOGY: YES: Hives; No: Insect Bite Sensitivity, Itchy/Watery Eyes, Nasal Congestion, Post Nasal Drip, Seasonal Allergies, Other Hematological and Lymphatic: No: Bleeding Problems, Blood Clots, Blood Transfusions, Brusing, Night Sweats, Pallor, Swollen Lymph Nodes, Other ENDOCRINE: No: Breast Changes, Galactorrhea, Hair Pattern Changes, Hot Flashes, Malaise/lethargy, Mood Swings, Palpitations, Polydipsia/polyuria, Skin Changes, Temperature Intolerance, Unexpected Weight Changes, Other Breast: No New/Changing Breast Lumps, No Nipple changes, No Nipple discharge, No Other Respiratory: No: Cough, Hemoptysis, Orthopnea, Pleuritic Pain, Shortness of breath, SOB with excertion, Sputum Changes, Stridor, Tachypnea, Wheezing, Other Cardiovascular: yes Chest Pain; No Palpitations, No Orthopnea, No Paroxysmal Noc. Dyspnea, No Edema, No Lt Headedness, No Other Gastrointestinal: No Nausea, No Vomiting, No Abdominal Pain, No Diarrhea, No Constipation, No Melena, No Hematochezia, No Other Genitourinary: No Dysuria, No Frequency, No Incontinence, No Hematuria, No Retention, No Discharge, No Urgency, No Pain, No Flank Pain, No Other, No , No , No , No , No , No , No Musculoskeletal: No Gait Disturbance, No Joint Pain, No Joint Stiffness, No Joint Swelling, No Muscle Pain, No Muscular Weakness, No Pain In:, No Swelling In:, No Other Neurological: No Behavorial Changes, No Bowel/Bladder ControlChng, No Confusion, No Dizziness, No Gait Disturbance, No Headaches, No Impaired Coord/balance, No Memory Loss, No Numbness/Tingling, No Seizures, No Speech Problems, No Tremors, No Visual Changes, No Weakness, No Other Skin: No Dry Skin, No Eczema, No Hair Changes, No Lumps, No Mole Changes, No Mottling, No Nail Changes, No Pruritus, No Rash, No Skin Lesion Changes, No Other, No Acne Physical Exam Physical Exam Constitutional: Well developed, well nourished, no acute distress, [] HENT: Normocephalic, atraumatic, bilateral external ears normal, oropharynx moist, no oral exudates, nose normal. [] Eyes: PERRLA, EOMI, conjunctiva normal, no discharge. [] Neck: Normal range of motion, no tenderness, supple, no stridor. [] Cardiovascular:Heart rate regular rhythm, no murmur [] Lungs & Thorax: Bilateral breath sounds clear to auscultation [] Abdomen: Bowel sounds normal, soft, no tenderness, no masses, no pulsatile masses. [] Skin: Warm, dry, no erythema, no rash. [] Back: No tenderness, no CVA tenderness. [] Extremities: No tenderness, no cyanosis, no clubbing, ROM intact, no edema. [] Neurologic: Alert and oriented X 3, normal motor function, normal sensory function, no focal deficits noted. [] Psychologic: Affect normal, judgment normal, mood normal. [] General: Alert, Oriented X3, Cooperative, No acute distress HEENT: Atraumatic Lungs: Clear to auscultation Heart: S1S2, RRR, no thrills, no rubs Breasts: Not examined Abdomen: Normal bowel sounds, Soft, No tenderness, Other (obese) Rectal Exam: not examined Extremities: No cyanosis, No edema, No tenderness/swelling Skin: No significant lesion Neuro: Normal speech, Sensation intact, Cranial nerves 3-12 NL Psych/Mental Status: Mental status NL, Mood NL FINAL DIAGNOSIS Problems Medical Problems: (1) Chest pain Status: Acute Brief Hospital Course Mr. Brown is a 60 old [sex] who presented with [ANGINA ] CONDITION AT DISCHARGE: Improved Discharge Medications Current Medications Morphine Sulfate (Morphine Sulfate) 4 mg 1X ONCE IVP Last administered on 07/23/21at 22:38; Start 07/23/21 at 22:15; Stop 07/23/21 at 22:16; Status DC Ondansetron HCl (Zofran) 4 mg PRN Q8HRS PRN IVP NAUSEA/VOMITING; Start 07/23/21 at 23:30; Stop 07/24/21 at 23:29 Morphine Sulfate (Morphine Sulfate) 2 mg PRN Q2HR PRN IVP PAIN Last administ ered on 07/24/21at 02:08; Start 07/23/21 at 23:30; Stop 07/24/21 at 23:29 Nitroglycerin (Nitrostat) 0.4 mg PRN Q5MIN PRN SL CHEST PAIN; Start 07/23/21 at 23:30; Stop 07/24/21 at 23:29 Potassium Chloride (Klor-Con) 40 meq 1X ONCE PO Last administered on 07/24/21at 02:07; Start 07/24/21 at 00:15; Stop 07/24/21 at 00:17; Status DC Aspirin (Aspirin Chewable) 81 mg DAILY PO ; Start 07/25/21 at 09:00 Chlorthalidone (Thalitone) 25 mg DAILY PO ; Start 07/25/21 at 09:00 Furosemide (Lasix) 40 mg DAILY PO ; Start 07/25/21 at 09:00 Labetalol HCl (Trandate) 200 mg BID PO ; Start 07/24/21 at 21:00 Non-Formulary Medication (Diclofenac Sodium ) 1 tab BID PO ; Start 07/24/21 at 21:00; Status UNV Potassium Chloride (Klor-Con) 10 meq DAILYWBKFT PO ; Start 07/25/21 at 08:00 Atorvastatin Calcium (Lipitor) 40 mg QHS PO ; Start 07/24/21 at 21:00 Active Scripts Active Diclofenac Sodium 75 Mg Tablet.dr 1 Tab PO BID 10 Days Reported Children's Aspirin (Aspirin) 81 Mg Tab.chew 1 Tab PO DAILY 30 Days Chlorthalidone (Chlorthalidone) 25 Mg Tablet 25 Mg PO DAILY Crestor (Rosuvastatin Calcium) 5 Mg Tablet 2 Tab PO DAILY Klor-Con M10 (Potassium Chloride) 10 Meq Tab.er.prt 10 Meq PO DAILY Furosemide 40 Mg Tablet 1 Tab PO DAILY Labetalol Hcl 200 Mg Tablet 1 Tab PO BID Vital Signs Vital Signs Date Time Temp Pulse Resp B/P (MAP) Pulse Ox O2 Delivery O2 Flow Rate FiO2 07/24/21 15:00 98.4 57 18 147/88 (107) 99 Room Air 98.4 07/24/21 07:00 2.0 Labs Laboratory Tests Test 07/23/21 21:23 07/24/21 00:10 07/24/21 08:05 07/24/21 13:00 White Blood Count 6.7 x10^3/uL (4.0-11.0) Red Blood Count 4.87 x10^6/uL (4.30-5.70) Hemoglobin 14.3 g/dL (13.0-17.5) Hematocrit 40.5 % (39.0-53.0) Mean Corpuscular Volume 83 fL (79-100) Mean Corpuscular Hemoglobin 30 pg (25-35) Mean Corpuscular Hemoglobin Concent 36 g/dL (31-37) Red Cell Distribution Width 13.1 % (11.5-14.5) Platelet Count 250 x10^3/uL (140-400) Neutrophils (%) (Auto) 64 % (31-73) Lymphocytes (%) (Auto) 22 % (24-48) Monocytes (%) (Auto) 10 % (0-9) Eosinophils (%) (Auto) 4 % (0-3) Basophils (%) (Auto) 1 % (0-3) Neutrophils # (Auto) 4.2 x10^3/uL (1.8-7.7) Lymphocytes # (Auto) 1.5 x10^3/uL (1.0-4.8) Monocytes # (Auto) 0.7 x10^3/uL (0.0-1.1) Eosinophils # (Auto) 0.2 x10^3/uL (0.0-0.7) Basophils # (Auto) 0.1 x10^3/uL (0.0-0.2) Sodium Level 139 mmol/L (136-145) Potassium Level 2.9 mmol/L (3.5-5.1) Chloride Level 103 mmol/L (98-107) Carbon Dioxide Level 28 mmol/L (21-32) Anion Gap 8 (6-14) Blood Urea Nitrogen 25 mg/dL (8-26) Creatinine 1.1 mg/dL (0.7-1.3) Estimated GFR (Cockcroft-Gault) 68.8 BUN/Creatinine Ratio 23 (6-20) Glucose Level 96 mg/dL (70-99) Calcium Level 9.4 mg/dL (8.5-10.1) Total Bilirubin 0.6 mg/dL (0.2-1.0) Aspartate Amino Transf (AST/SGOT) 28 U/L (15-37) Alanine Aminotransferase (ALT/SGPT) 54 U/L (16-63) Alkaline Phosphatase 53 U/L (46-116) Troponin I Quantitative < 0.017 ng/mL (0.000-0.055) < 0.017 ng/mL (0.000-0.055) < 0.017 ng/mL (0.000-0.055) < 0.017 ng/mL (0.000-0.055) Total Protein 6.8 g/dL (6.4-8.2) Albumin 3.7 g/dL (3.4-5.0) Albumin/Globulin Ratio 1.2 (1.0-1.7) Laboratory Tests Test 07/23/21 21:23 07/24/21 00:10 07/24/21 08:05 07/24/21 13:00 White Blood Count 6.7 x10^3/uL (4.0-11.0) Red Blood Count 4.87 x10^6/uL (4.30-5.70) Hemoglobin 14.3 g/dL (13.0-17.5) Hematocrit 40.5 % (39.0-53.0) Mean Corpuscular Volume 83 fL (79-100) Mean Corpuscular Hemoglobin 30 pg (25-35) Mean Corpuscular Hemoglobin Concent 36 g/dL (31-37) Red Cell Distribution Width 13.1 % (11.5-14.5) Platelet Count 250 x10^3/uL (140-400) Neutrophils (%) (Auto) 64 % (31-73) Lymphocytes (%) (Auto) 22 % (24-48) Monocytes (%) (Auto) 10 % (0-9) Eosinophils (%) (Auto) 4 % (0-3) Basophils (%) (Auto) 1 % (0-3) Neutrophils # (Auto) 4.2 x10^3/uL (1.8-7.7) Lymphocytes # (Auto) 1.5 x10^3/uL (1.0-4.8) Monocytes # (Auto) 0.7 x10^3/uL (0.0-1.1) Eosinophils # (Auto) 0.2 x10^3/uL (0.0-0.7) Basophils # (Auto) 0.1 x10^3/uL (0.0-0.2) Sodium Level 139 mmol/L (136-145) Potassium Level 2.9 mmol/L (3.5-5.1) Chloride Level 103 mmol/L (98-107) Carbon Dioxide Level 28 mmol/L (21-32) Anion Gap 8 (6-14) Blood Urea Nitrogen 25 mg/dL (8-26) Creatinine 1.1 mg/dL (0.7-1.3) Estimated GFR (Cockcroft-Gault) 68.8 BUN/Creatinine Ratio 23 (6-20) Glucose Level 96 mg/dL (70-99) Calcium Level 9.4 mg/dL (8.5-10.1) Total Bilirubin 0.6 mg/dL (0.2-1.0) Aspartate Amino Transf (AST/SGOT) 28 U/L (15-37) Alanine Aminotransferase (ALT/SGPT) 54 U/L (16-63) Alkaline Phosphatase 53 U/L (46-116) Troponin I Quantitative < 0.017 ng/mL (0.000-0.055) < 0.017 ng/mL (0.000-0.055) < 0.017 ng/mL (0.000-0.055) < 0.017 ng/mL (0.000-0.055) Total Protein 6.8 g/dL (6.4-8.2) Albumin 3.7 g/dL (3.4-5.0) Albumin/Globulin Ratio 1.2 (1.0-1.7) Allergies Allergies Coded Allergies Type Severity Reaction Last Updated Verified Penicillins Allergy Severe rash 01/03/20 Yes cephalexin Allergy Severe rash, lips swell up 01/03/20 Yes ciprofloxacin Allergy Severe rash, lips swell up 01/03/20 Yes tolmetin Allergy Intermediate rash 01/03/20 Yes Disposition/Orders: D/C to Home Justicifation of Admission Dx: Justifications for Admission: Justification of Admission Dx: No JAYJAY HERNANDEZ MD Jul 24, 2021 15:49
[2021-07-24] MEDS ORDERED: NITR0.4T24 SL (15:52)
--- NOTE | 2021-07-24 15:53 | DISCH ---
DISCHARGE INSTRUCTIONS Condition on Discharge Condition on Discharge: Stable Activity After Discharge Activity Instructions for Disc: Resume previous activity, Activity as tolerated Driving Instructions after Dis: Do not drive today Diet after Discharge Diet after Discharge: Cardiac Liquid Texture: Thin Liquid Checks after Discharge Checks after discharge: Check blood press - daily Contacting the DR. after DC Call your doctor for: If your condition worsens Follow-Up Follow up with: SEE YOUR PCP IN 3-5 DAY, CARDIOLOGY SOON Treatment/Equipment after DC Adaptive Equipment Issued: None JAYJAY HERNANDEZ MD Jul 24, 2021 15:53
[2021-07-24] MEDS ORDERED: NON FORMULARY ITEM (Diclofenac Sodium 1 TAB) PO SCH (21:00)
[2021-07-24] MEDS ORDERED: ATORVASTATIN CALCIUM 40 MG TABLET. PO SCH (21:00)
[2021-07-24] MEDS ORDERED: LABETALOL HCL 200 MG TABLET PO SCH (21:00)
[2021-07-25] MEDS ORDERED: POTASSIUM CHLORIDE 10 MEQ TABLET.ER. PO SCH (08:00)
[2021-07-25] MEDS ORDERED: ASPIRIN CHEWABLE 81 MG TABLET. PO SCH (09:00)
[2021-07-25] MEDS ORDERED: CHLORTHALIDONE 25 MG TABLET. PO SCH (09:00)
[2021-07-25] MEDS ORDERED: FUROSEMIDE 40 MG TABLET. PO SCH (09:00)
== END 2021-07-24 16:31 | disposition home or self-care (01) ==
LOC: ER 21:10 → 6 SOUTH 23:20
PROVIDERS: ADMIT Family Medicine; ATTEND Family Medicine
DX: R07.89 Other chest pain (principal); G89.29 Other chronic pain; R42 Dizziness and giddiness; I10 Essential (primary) hypertension; E78.00 Pure hypercholesterolemia, unspecified; I25.2 Old myocardial infarction; E78.5 Hyperlipidemia, unspecified; F41.9 Anxiety disorder, unspecified; E66.01 Morbid (severe) obesity due to excess calories; M19.90 Unspecified osteoarthritis, unspecified site; Z79.899 Other long term (current) drug therapy; Z79.82 Long term (current) use of aspirin
CPT/HCPCS: 36415; 71045; 80053; 84484; 85025; 93005; 96374; 96376; 99285; G0378; J2270; G0379